=== PATIENT | female | born 1950 | race African-American/Black ===

== ENCOUNTER 2016-09-21 12:30 | Inpatient (IN) ==
[2016-09-21] MEDS ORDERED: GLUCAGON 1 MG VIAL IM PRN (13:48)
[2016-09-21] MEDS ORDERED: DEXTROSE 50% 25 GM/50 ML VIAL IV PRN (13:48)
[2016-09-21] MEDS ORDERED: ONDANSETRON 4 MG/2 ML VIAL IV PRN (13:48)
[2016-09-21] MEDS ORDERED: ACETAMINOPHEN 325 MG TABLET PO PRN (13:48)
[2016-09-21] MEDS ORDERED: ZALEPLON 5 MG CAPSULE PO PRN (13:48)
--- NOTE | 2016-09-21 13:56 | Hospitalist History & Physical ---
Assessment and Plan (1) Congestive heart failure Status: Acute Assessment and plan: Repeat BMP in a.m. Serial cardiac enzymes. 2D echo ordered. Current Visit: Yes Qualifiers: Qualified Code(s): I50.9 - Heart failure, unspecified (2) Hypertension Status: Chronic Assessment and plan: Continue home medications. Current Visit: Yes Qualifiers: Qualified Code(s): I10 - Essential (primary) hypertension (3) ESRD (end stage renal disease) Status: Chronic Assessment and plan: Consult Dr. Dan. Continue dialysis. Current Visit: No (4) Chest pain Status: Acute Assessment and plan: Serial troponins. Current Visit: Yes History of Present Illness Chief complaint: CP, SOB History of present illness: Ms. Henry is a 66 year old female with HTN and ESRD on dialysis that was transferred here from the ED at [facility], where she presented with CP and SOB. She was diagnosed with CHF and sent here for further evaluation. She was at dialysis this morning when she reported SOB and pain in the chest. She is a very poor historian and is not able to provide much information. 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 She has conversational dyspnea. Initial labs were done at [facility]. She is admitted for further evaluation of her shortness of breath and congestive heart failure. Dialysis will need to be resumed and a consult for Dr. Dan has been placed. An echo has been ordered. All medications were reviewed and reconciled. The patient is a full code. Home Medications Medication Instructions Recorded Confirmed Type Docusate Sodium Cap [Colace Cap] 100 mg PO BID capsule 11/29/15 09/21/16 Rx cloNIDine TAB [Catapres Tab] 0.1 mg PO TID #90 tablet 11/29/15 09/21/16 Rx hydrALAZINE TAB [Apresoline Tab] 100 mg PO BID 04/15/16 09/21/16 History Albuterol Sulfate [Ventolin HFA] 2 puff INH Q6H PRN 09/21/16 09/21/16 History Budesonide/Formoterol 160-4.5 2 puffs INH BID 09/21/16 09/21/16 History [Symbicort 160-4.5] Donepezil [Aricept] 5 mg PO DAILY 09/21/16 09/21/16 History Folic Acid Tab 1 mg PO DAILY 09/21/16 09/21/16 History Levothyroxine Tab [Synthroid Tab] 50 mcg PO DAILY@0700 09/21/16 09/21/16 History Metoprolol Tartrate 50 mg PO BID 09/21/16 09/21/16 History Sevelamer Carbonate Tab [Renvela 1,600 mg PO TID W/MEALS 09/21/16 09/21/16 History Tab] Thiamine Tab [Vitamin B1 Tab] 100 mg PO DAILY 09/21/16 09/21/16 History Allergies Allergy/AdvReac Type Severity Reaction Status Date / Time Penicillins Allergy RASH Verified 06/04/16 06:48 Medical,Surgical,& Family Hx - Medical History Cardio: History of: CHF, Hypertension Neurology: History of: Dementia No history of: Seizures Endocrine: History of: Thyroid Disorder Respiratory: History of: Asthma Renal: History of: Dialysis (mwf---dan), Renal Failure Gastrointestinal: History of: GERD Hematology: History of: Anemia - Surgical History Cardiac Surgeries: Sugical HX of: Vascular Access Devices (AV fistula for hemodialysis) HEENT Surgeries: Surgical HX of: Thyroid Surgery Reproductive Surgeries: Surgical HX of;: Hysterectomy - Family History Family History: Reports;: Family Cancer (father mother), Family Hypertension ( father mother) - Social History Smoking Status: Never smoker Frequency of Alcohol Use: None Type of Drug Use: None Marital Status: Lives With:: Alone 12 point system: reviewed and no additional remarkable complaints except as stated - Cardiovascular Cardiovascular: Present: as per HPI, chest pain at rest, dyspnea - Respiratory Respiratory: Present: as per HPI, dyspnea Exam - Constitutional Vitals: Period Temp Pulse Resp BP Sys/Matta Pulse Ox Last 24 Hr 97.9 F 81 20 162-237/67-102 92 Exam: Constitutional System: Mild distress. No tremulousness. Head: Normocephalic, atraumatic. Ears, Nose and Throat System: No pain or tenderness. No epistaxis or discharge Eyes System: Pupils equal, round, and reactive. Extraocular muscles intact. Neck: Supple, without adenopathy, No jugular venous distention. Respiratory System: Chest rales to auscultation. Cardiovascular System: Heart with regular rate and rhythm. No murmur. GI System: Abdomen soft, nontender. Normo active bowel sounds present. Musculoskeletal System: limbs with pedal edema. Full distal pulses. Neurological System: No discernable sensory deficit. No aphasia Psychiatric System: Conversation is rational Results - Labs Lab Results: I have reviewed the past 24 hour labs
[2016-09-21] MEDS ORDERED: ALBUTEROL 2.5 MG/3 ML NEB RESP TX PRN (14:00)
--- NOTE | 2016-09-21 14:03 | Nephrology Consult Note ---
History of Present Illness Chief complaint: ESRD History of present illness: Ms. Henry is a 66 year old female with end-stage renal diseas with end-stage renal disease who dialyzes in [facility]. She was at dialysis today and complained of chest discomfort was taken off dialysis and went to the [facility] emergency room. From there she was transferred here. Her potassium there was 3.0 and BUN was 20. She is currently being monitored in the telemetry unit. On physical exam she is in no distress. Neck without jugular venous distention heart without rub or gallop. She has a right chest dialysis catheter in place. Labs from here is pending. Impression: End-stage renal disease #2 chest pain #3 dialysis catheter right chest. Plan: Continue Wednesday hemodialysis. Will follow with you while she is worked up thank you Home Medications Medication Instructions Recorded Confirmed Type Docusate Sodium Cap [Colace Cap] 100 mg PO BID capsule 11/29/15 09/21/16 Rx cloNIDine TAB [Catapres Tab] 0.1 mg PO TID #90 tablet 11/29/15 09/21/16 Rx hydrALAZINE TAB [Apresoline Tab] 100 mg PO BID 04/15/16 09/21/16 History Albuterol Sulfate [Ventolin HFA] 2 puff INH Q6H PRN 09/21/16 09/21/16 History Budesonide/Formoterol 160-4.5 2 puffs INH BID 09/21/16 09/21/16 History [Symbicort 160-4.5] Donepezil [Aricept] 5 mg PO DAILY 09/21/16 09/21/16 History Folic Acid Tab 1 mg PO DAILY 09/21/16 09/21/16 History Levothyroxine Tab [Synthroid Tab] 50 mcg PO DAILY@0700 09/21/16 09/21/16 History Metoprolol Tartrate 50 mg PO BID 09/21/16 09/21/16 History Sevelamer Carbonate Tab [Renvela 1,600 mg PO TID W/MEALS 09/21/16 09/21/16 History Tab] Thiamine Tab [Vitamin B1 Tab] 100 mg PO DAILY 09/21/16 09/21/16 History Allergies Allergy/AdvReac Type Severity Reaction Status Date / Time Penicillins Allergy RASH Verified 06/04/16 06:48 Medical,Surgical,& Family Hx - Medical History Cardio: History of: CHF, Hypertension Neurology: History of: Dementia No history of: Seizures Endocrine: History of: Thyroid Disorder Respiratory: History of: Asthma Renal: History of: Dialysis (mwf---thomas), Renal Failure Gastrointestinal: History of: GERD Hematology: History of: Anemia - Surgical History Cardiac Surgeries: Sugical HX of: Vascular Access Devices (AV fistula for hemodialysis) HEENT Surgeries: Surgical HX of: Thyroid Surgery Reproductive Surgeries: Surgical HX of;: Hysterectomy - Family History Family History: Reports;: Family Cancer (father mother), Family Hypertension ( father mother) - Social History Smoking Status: Never smoker Frequency of Alcohol Use: None Type of Drug Use: None Review of Systems 12 point system: reviewed and no additional remarkable complaints except as stated Exam - Vital Signs Vital signs: Period Temp Pulse Resp BP Sys/Matta Pulse Ox Last 24 Hr 97.9 F 81 20 162-237/67-102 92 - General Appearance General appearance: well-developed, well-nourished, appears started age EENT: ATNC Neck: no JVD, no thyromegaly, no carotid bruit, supple Respiratory: no kyphosis, no scoliosis Cardiology: no murmurs, no rub, no gallops, no edema, regular rate, regular rhythm, normal S1, normal S2 Gastrointestinal: normoactive bowel sounds Integumentary: no rash, warm and dry Neurologic: no focal deficit, no asterixis, alert and oriented x3, reflexes 2+ and symmetric, gait normal, strength 5/5 Musculoskeletal: no deformities, no erythema, no cyanosis, no clubbing Psychiatric: mood/affect appropriate (R chest dialysis catheter), cooperative Specialty Discharge - Follow Up or Referrals - Speciality Discharge Instructions Nephrology Instructions: MWF dialysis
--- NOTE | 2016-09-21 14:31 | EKG Report ---
Stationary ECG Study [facility] Test Date: 09/21/2016 2:34:05 PM Pat Name: JONATHAN STAFFORD Department: Room: 283 Gender: F Window Cutter: ALVIN : 1950 Requested by: Lauren Acuna Order Number: [id number] Reading MD: CORTEZ UGARTE Intervals [place] Rate: 84 P: -29 [place]: 135 QRS: 12 QRSD: 118 T: 182 QT: 400 QTc: 441 Interpretive Statements SINUS RHYTHM LEFT VENTRICULAR HYPERTROPHY AND ST-T CHANGE Electronically Signed On 09-22-16 05:36:26 CDT by CORTEZ UGARTE [email or web address]
--- NOTE | 2016-09-21 14:41 | XRay Report ---
XR chest 1V portable Indication: Shortness of breath Comparison: 15 April 2016 Findings: The heart and mediastinum are stable in size and configuration. Right internal jugular catheter is unchanged in position. The pulmonary vascularity is increased with bilateral increased interstitial lung density greater on the right. No other lung infiltrates, effusions, pneumothorax or other abnormality is demonstrated. Impression: Findings suggest cardiac decompensation. PROCEDURE INTERPRETED AT [facility] DEPARTMENT OF RADIOLOGY Final Report Signed by: Dr. Williams Dorsey
[2016-09-21] MEDS ORDERED: ENOXAPARIN 30 MG/0.3 ML SYRINGE SUBCUT SCH (15:00)
[2016-09-21] MEDS: BUDESONIDE/FORMOTEROL 160-4.5 INHALER 6 GM INH SCH ×2 (15:31→20:53)
[2016-09-21 16:42] LABS: Troponin I Only 0.054 NG/ML (0.00-0.045)
--- NOTE | 2016-09-21 17:55 | ECHO Report ---
Carl Carina Exam Date: 09/21/2016 14:36 Referring Physician: Technologist: sukhjinder Arshad ARDMS, RVT Age: 66 Ht (in): 61 Wt (lb): 125 Gender: F Exam Location: [facility] Echo Indications: Essential (primary) hypertension, Chest pain, unspecified, Shortness of breath, CHF, End stage renal disease BP: 162 / 67 HR: 85 Rhythm: Sinus Technical Quality: Good IMPRESSIONS EF 60 %. Moderate concentric left ventricular hypertrophy. Grade II/IV diastolic dysfunction, moderately elevated filling pressures. Mildly increased right ventricular size. Moderately increased right atrial size. Moderately increased left atrial size. Mildly thickened mitral valve, Mild mitral valve regurgitation. Mitral annular calcification. Aortic valve sclerosis. Trace aortic valve regurgitation. Morphologically normal tricuspid valve. Severe tricuspid valve regurgitation. PAP 85 mmHG. Morphologically normal pulmonic valve. Mild pulmonary valve regurgitation. Normal pericardium without effusion. Normal ascending aorta dimension. MEASUREMENTS (Male / Female) Normal Values 2D ECHO LV Diastolic Diameter PLAX 4.9 cm 4.2 - 5.9 / 3.9 - 5.3 cm LV Systolic Diameter PLAX 2.5 cm LV Fractional Shortening PLAX 49.3 % IVS Diastolic Thickness 1.8 cm 0.6 - 1.0 / 0.6 - 0.9 cm LVPW Diastolic Thickness 1.7 cm 0.6 - 1.0 / 0.6 - 0.9 cm RV Internal Dim ED PLAX 3.9 cm Aortic Root Diameter 3.2 cm LA Systolic Diameter LX 5.1 cm 3.0 - 4.0 / 2.7 - 3.8 cm DOPPLER TR Peak Velocity 444.0 cm/s TR Peak Gradient 78.9 mmHg FINDINGS Left Ventricle EF 60 %. Moderate concentric left ventricular hypertrophy. Grade II/IV diastolic dysfunction, moderately elevated filling pressures. Right Ventricle Mildly increased right ventricular size. Right Atrium Moderately increased right atrial size. Left Atrium Moderately increased left atrial size. Mitral Valve Mildly thickened mitral valve. Mitral annular calcification. Mild mitral valve regurgitation. Aortic Valve Aortic valve sclerosis. Trace aortic valve regurgitation. Tricuspid Valve Morphologically normal tricuspid valve. Severe tricuspid valve regurgitation.PAP 85 mmHG. Pulmonic Valve Morphologically normal pulmonic valve. Mild pulmonary valve regurgitation. Pericardium Normal pericardium without effusion. Aorta Normal ascending aorta dimension. Leon Riggs (Electronically Signed) Final Date: 21 September 2016 17:54
[2016-09-21] MEDS: SEVELAMER CARBONATE 800 MG TABLET PO SCH (17:58)
[2016-09-21] MEDS: INSULIN LISPRO 100 UNIT/ML SUBCUT SCH ×2 (17:59→20:53)
[2016-09-21 20:34] LABS: Troponin I Only 0.072 NG/ML (0.00-0.045)
[2016-09-21] MEDS: DOCUSATE SODIUM 100 MG CAPSULE PO SCH (20:53)
[2016-09-21] MEDS: METOPROLOL TARTRATE 50 MG TABLET PO SCH (20:53)
[2016-09-22 05:12] LABS: Basophils % 0.4 % (0.0-0.8); Eosinophils # 0.4 10*3/uL (0.0-0.87); Eosinophils % 5.2 % (0.00-10.9); Hematocrit 31.8 VOL% (35.7-47.0); Hemoglobin 10.5 GM/DL (12.0-16.0); Immature Granulocytes % 0.2 %; Immature Granulocytes Absolute 0.02 #; Lymphocytes # 1.2 10*3/uL (1.4-4.0); Lymphocytes % 14.3 % (21.3-54.2); Mean Corpuscular Hemoglobin 34 PG (27-34); Mean Corpuscular Volume 103.9 FL (87-102); Monocytes # 0.5 10*3/uL (0.11-0.8); Monocytes % 5.6 % (1.7-12.7); Neutrophils # 6.3 10*3/uL (1.4-7.4); Neutrophils % 74.3 % (38.7-73.9); Platelet Count 130 T/CUMM (130-400); Red Blood Count 3.06 MC/CUMM (3.8-5.5); Red Cell Distribution Width 14.2 % (9.3-17.3); White Blood Count 8.5 T/CUMM (4-12)
[2016-09-22 06:13] LABS: Albumin 3.3 G/DL (3.4-5.0); Bilirubin,Total 0.6 MG/DL (0.2-1.0); Calcium 9.8 MG/DL (8.5-10.1); Free T4 (Free Thyroxine) 0.86 NG/DL (0.76-1.46); Magnesium 2.5 MG/DL (1.8-2.4); Osmolality,Calculated 281.5 MOS/KG (273-304); Potassium 3.7 MMOL/L (3.5-5.1); Risk Ratio 1.74; Thyroid Stimulating Hormone 12.9 uIU/ml (0.358-3.74); Total Protein 7.4 G/DL (6.4-8.3); VLDL CHOLESTEROL 10.8 MG/DL
[2016-09-22] MEDS ORDERED: LEVOTHYROXINE 50 MCG TABLET PO SCH (07:00)
--- NOTE | 2016-09-22 07:27 | EKG Report ---
Stationary ECG Study [facility] Test Date: 09/22/2016 7:27:17 AM Pat Name: JONATHAN STAFFORD Department: Room: 283 Gender: F Digital Producer: ALVIN : 1950 Requested by: Lauren Acuna Order Number: [id number] Reading MD: CORTEZ UGARTE Intervals [place] Rate: 75 P: -3 [place]: 137 QRS: 5 QRSD: 118 T: 53 QT: 420 QTc: 450 Interpretive Statements SINUS RHYTHM LEFT VENTRICULAR HYPERTROPHY AND ST-T CHANGES Electronically Signed On 09-22-16 11:47:40 CDT by CORTEZ UGARTE [email or web address]
--- NOTE | 2016-09-22 08:58 | XRay Report ---
XR chest 1V portable Indication: Shortness of breath Comparison: 21 September 2016 Findings: The heart and mediastinum are stable in size and configuration. Right internal jugular catheters unchanged in position. The pulmonary vascularity is increased bilateral pulmonary density similar to previous. Small right effusion is present. No pneumothorax or other abnormality is demonstrated. Impression: No significant change. PROCEDURE INTERPRETED AT [facility] DEPARTMENT OF RADIOLOGY Final Report Signed by: Dr. Williams Dorsey
[2016-09-22] MEDS ORDERED: DONEPEZIL 5 MG TABLET PO SCH (09:00)
[2016-09-22] MEDS ORDERED: FOLIC ACID 1 MG TABLET PO SCH (09:00)
[2016-09-22] MEDS ORDERED: THIAMINE 100 MG TABLET PO SCH (09:00)
[2016-09-22] MEDS ORDERED: PANTOPRAZOLE 40 MG TABLET PO SCH (09:00)
[2016-09-22] MEDS: INSULIN LISPRO 100 UNIT/ML SUBCUT SCH ×2 (09:16→12:53)
[2016-09-22] MEDS: SEVELAMER CARBONATE 800 MG TABLET PO SCH ×2 (09:56→12:47)
--- NOTE | 2016-09-22 10:29 | Discharge Summary ---
<Bharati Granados - Last Filed: 09/22/16 14:26> Hospital Course - Hospital Course Hospital Course: Ms Henry 66 y/o female with PMHx of HTN and ESRD on dilysis. She was initially transferred from [facility] to [place] ED for further evaluation of chest pain and shortness of breath that she started experiencing shortly after being connected to dialysis yesterday morning. Chest xray suggest cardiac decompensation. BNP was elevated 3334. Troponin increased to 0.054. TSH 12.900. Electrolytes were within normal limits. Admitted 09/21/16 for c/o chest pain and shortness of breath. Nephrology was consulted. Echo was done and showed IMPRESSIONS EF 60 %. Moderate concentric left ventricular hypertrophy. Grade II/IV diastolic dysfunction, moderately elevated filling pressures. Mildly increased right ventricular size. Moderately increased right atrial size. Moderately increased left atrial size. Mildly thickened mitral valve, Mild mitral valve regurgitation. Mitral annular calcification. Aortic valve sclerosis. Trace aortic valve regurgitation. Morphologically normal tricuspid valve. Severe tricuspid valve regurgitation. PAP 85 mmHG. Morphologically normal pulmonic valve. Mild pulmonary valve regurgitation. Normal pericardium without effusion. Normal ascending aorta dimension. Today 09/22/16 Chest xray shows no significant change. Patient is feeling much better and has no more events of chest pain or shortness of breath. Nephrology will proceed with dialysis today. It was decided after patient completed dialysis and no other problems occur, she could be discharged home and would need to follow up with her Primary care physician and nephrology. 09/22/16 Chart reviewed and patient seen. She verbalized having a much better night last night and got to rest. Denies chest pain or shortness of breath. She admitted to not taking her synthoid medication as prescribed, when asked why was she not taking her synthoid, she stated "I just don't take it, no reason just don't take it.". - Time spent with patient Time with patient DS: Less than 30 minutes Diagnosis - Discharge Diagnosis (1) Chest pain Status: Resolved (2) Shortness of breath Status: Resolved Specialty Discharge - Follow Up or Referrals Follow up with: Giovanny Dan MD [Physician] - Discharge Plan - Discharge Data Disposition: Disch To Home/Self Care - Discharge Medications Continue Docusate Sodium Cap [Colace Cap] 100 mg PO BID capsule cloNIDine TAB [Catapres Tab] 0.1 mg PO TID #90 tablet Budesonide/Formoterol 160-4.5 [Symbicort 160-4.5] 2 puffs INH BID Donepezil [Aricept] 5 mg PO DAILY Metoprolol Tartrate 50 mg PO BID Levothyroxine Tab [Synthroid Tab] 50 mcg PO DAILY@0700 Thiamine Tab [Vitamin B1 Tab] 100 mg PO DAILY hydrALAZINE TAB [Apresoline Tab] 100 mg PO BID Sevelamer Carbonate Tab [Renvela Tab] 1,600 mg PO TID W/MEALS Albuterol Sulfate [Ventolin HFA] 2 puff INH Q6H PRN PRN Reason: Shortness Of Breath/Wheezing Folic Acid Tab 1 mg PO DAILY - Follow Up or Referral Follow Up: Giovanny Dan MD [Physician] - - Forms/Instructions Exam - Constitutional Vitals: Period Temp Pulse Resp BP Sys/Matta Pulse Ox Last 24 Hr 97.3 F-99.0 F 74-98 18-22 96-195/69-97 98-100 General appearance: normal weight, no acute distress - Head Head exam: Present: normal inspection - Eye Eye exam: Present: EOMI Pupils: Present: DIANA - Respiratory Respiratory exam: Present: clear to auscultation bilaterally - Cardiovascular Cardiovascular exam: Present: regular rate and rhythm - GI/Abdominal GI/Abdominal exam: Present: normal bowel sounds, soft. Absent: firm, tenderness , rebound - Extremities Exam Extremities exam: Present: full ROM. Absent: edema - Neurological Exam Neurological exam: Present: alert, oriented X3, CN II-XII intact - Psychiatric Psychiatric exam: Present: normal affect, normal mood - Skin Skin exam: Present: normal color, warm, dry Discharge Results Labs on day of discharge: Labs from last 24 hours 09/22/16 09/22/16 09/22/16 04:57 04:56 04:56 WBC RBC Hgb Hct MCV MCH MCHC RDW Plt Count MPV Neut % (Auto) Lymph % (Auto) [place] % (Auto) Eos % (Auto) Baso % (Auto) Neut # (Auto) Lymph # (Auto) [place] # (Auto) Eos # (Auto) Baso # (Auto) Immature Gran % Nucleated RBC % Immature Gran # Nucleated RBCs # Sodium 139 Potassium 3.7 Chloride 100 Carbon Dioxide 31 Anion Gap 11.7 BUN 29 H Creatinine 6.90 H GFR Calculation 6 BUN/Creatinine Ratio 4.00 L Glucose 87 POC Glucose Hemoglobin A1c 4.4 Calculated Osmolality 281.5 Calcium 9.8 Magnesium 2.5 H Total Bilirubin 0.60 AST 14 ALT 9 L Alkaline Phosphatase 56 Total Creatine Kinase CK-MB (CK-2) Troponin I B-Natriuretic Peptide 3334 H Total Protein 7.4 Albumin 3.3 L Globulin 4.1 H Albumin/Globulin Ratio 0.8 L Triglycerides 54 Cholesterol 80 LDL Cholesterol 28.0 VLDL Cholesterol 10.8 HDL Cholesterol 46 Heart Disease Risk Ratio 1.74 Free T4 0.86 TSH 3rd Generation 12.900 H 09/22/16 09/21/16 09/21/16 04:56 19:51 19:47 WBC 8.5 RBC 3.06 L Hgb 10.5 L Hct 31.8 L MCV 103.9 H MCH 34 MCHC 33.0 RDW 14.2 Plt Count 130 MPV 12.0 Neut % (Auto) 74.3 H Lymph % (Auto) 14.3 L [place] % (Auto) 5.6 Eos % (Auto) 5.2 Baso % (Auto) 0.4 Neut # (Auto) 6.3 Lymph # (Auto) 1.2 L [place] # (Auto) 0.5 Eos # (Auto) 0.4 Baso # (Auto) 0.0 Immature Gran % 0.2 Nucleated RBC % 0.0 Immature Gran # 0.02 Nucleated RBCs # 0.00 Sodium Potassium Chloride Carbon Dioxide Anion Gap BUN Creatinine GFR Calculation BUN/Creatinine Ratio Glucose POC Glucose 103 Hemoglobin A1c Calculated Osmolality Calcium Magnesium Total Bilirubin AST ALT Alkaline Phosphatase Total Creatine Kinase 37 CK-MB (CK-2) 1.2 Troponin I 0.072 H D B-Natriuretic Peptide Total Protein Albumin Globulin Albumin/Globulin Ratio Triglycerides Cholesterol LDL Cholesterol VLDL Cholesterol HDL Cholesterol Heart Disease Risk Ratio Free T4 TSH 3rd Generation 09/21/16 09/21/16 15:31 15:25 WBC RBC Hgb Hct MCV MCH MCHC RDW Plt Count MPV Neut % (Auto) Lymph % (Auto) [place] % (Auto) Eos % (Auto) Baso % (Auto) Neut # (Auto) Lymph # (Auto) [place] # (Auto) Eos # (Auto) Baso # (Auto) Immature Gran % Nucleated RBC % Immature Gran # Nucleated RBCs # Sodium Potassium Chloride Carbon Dioxide Anion Gap BUN Creatinine GFR Calculation BUN/Creatinine Ratio Glucose POC Glucose 120 H Hemoglobin A1c Calculated Osmolality Calcium Magnesium Total Bilirubin AST ALT Alkaline Phosphatase Total Creatine Kinase 35 CK-MB (CK-2) 1.5 Troponin I 0.054 H B-Natriuretic Peptide Total Protein Albumin Globulin Albumin/Globulin Ratio Triglycerides Cholesterol LDL Cholesterol VLDL Cholesterol HDL Cholesterol Heart Disease Risk Ratio Free T4 TSH 3rd Generation - Imaging and Cardiology Procedure: Chest x-ray: report reviewed by me (No significant change.) DS: Provider Date of admission: 09/21/16 12:56 Primary care physician: . No PCP Attending physician on admission: Lauren Acuna MD Consults: 09/21/16 13:48 Consult to Physician [CONS] Routine Comment: ESRD on dialysis Consulting Provider: Giovanny Dan 09/21/16 13:49 Consult to Case Mgmt/Social Srvs [CONS] Routine Reason for Case Mgmt/Social Srvs: Discharge Planning Discharging clinician: Bharati Granados NP <Lauren Acuna - Last Filed: 09/22/16 16:35> Hospital Course - Time spent with patient Time with patient DS: Greater than 30 minutes (Total discharge time for this patient, including [id number] time, clinical documentation, medication reconciliation, and discharge planning was 38 minutes.) Diagnosis - Discharge Diagnosis (1) Congestive heart failure Status: Acute (2) Hypertension Status: Chronic (3) ESRD (end stage renal disease) Status: Chronic (4) Chest pain Status: Resolved Discharge Plan - Discharge Data Condition at Discharge: Stable Discharge Diet: advance to your usual diet Activity: resume usual activities as tolerated Hygiene: no restrictions Contact your physician if you experience:: fever over 101, Shortness of breath - Forms/Instructions Additional Discharge Instructions: Continue regularly scheduled dialysis DS: Provider Expected date of discharge: 09/22/16
[2016-09-22 12:16] VITALS: BP 112/73
[2016-09-22] MEDS: DOCUSATE SODIUM 100 MG CAPSULE PO SCH (12:48)
[2016-09-22] MEDS: METOPROLOL TARTRATE 50 MG TABLET PO SCH (12:49)
[2016-09-22] MEDS: BUDESONIDE/FORMOTEROL 160-4.5 INHALER 6 GM INH SCH (12:52)
--- NOTE | 2016-09-22 14:35 | Nephrology Progress Note ---
Nephrology - PN: Subj Interval history: Ms. wang is seen in follow-up of her end-stage renal disease. She dialyzed yesterday but came off dialysis early as an outpatient and came here for evaluation. She is much better today her chest is clear and she is in no distress and is has no complaints. She has a potassium today of 3.7. Plan is for discharge and she will dialyze tomorrow as an outpatient at the [place] dialysis unit. Exam (PN)-Nephrology - Vital Signs Vital signs: Period Temp Pulse Resp BP Sys/Matta Pulse Ox Last 24 Hr 97.3 F-99.0 F 74-98 18-22 96-195/69-97 98-100 - Lab 09/22/16 04:56 09/22/16 04:56 Most recent lab results Calcium 9.8 MG/DL (8.5-10.1) 09/22/16 04:56 Magnesium 2.5 MG/DL (1.8-2.4) H 09/22/16 04:56 Specialty Discharge - Follow Up or Referrals Follow up with: Giovanny Dan MD [Physician] -
--- NOTE | 2016-09-23 11:17 | Physician Query Form ---
CLICK EDIT DOCUMENT TO SELECT QUERY ANSWER --> OK --> SIGN Kayley Quinones RN, CCDS Certified Clinical [employer] W) [phone] (f) [phone] [email or web address] PROVIDERS: Make your selection(s) from the choices in EACH section by typing an "x" and enter comments in the comment section. Please use your independent medical judgment in providing your response. This request does not imply that any particular answer is desired or expected. CLINICAL INDICATORS: (Providers should not edit this section) The medical record indicates that the patient was admitted with CHF [acute], BNP of 3334#, EF of 60%, "Grade II/IV diastolic dysfunction", and the patient is a dialysis patient. Please provide further specificity regarding CHF. TYPE: ( ) Systolic (HFrEF - heart failure with reduced systolic function/EF) ( X) Diastolic (HFpEF - heart failure with preserved systolic function/EF) ( ) Combined Systolic/Diastolic ( ) Other, please specify: ( ) Clinically unable to determine ( ) The patient does NOT have CHF COMMENTS: PLEASE ALSO DOCUMENT RESPONSE IN PROGRESS NOTES AND/OR DISCHARGE SUMMARY Use of terms such as suspected, likely, or probable (associated with a specific diagnosis that is being evaluated, monitored, or treated as if it exists) are acceptable and can be restated in the discharge summary if not ruled out. MTDD
== END 2016-09-22 15:32 | disposition home or self-care (01) | DRG 291 ==
LOC: N.TELEN 12:56
PROVIDERS: ADMIT Family Medicine; ATTEND Family Medicine